=== PATIENT | female | born 1965 | race Caucasian/White ===

== ENCOUNTER 2017-07-10 07:57 | Day surgery (SDC) | payer BC ==
[~2017-07-10 07:57] MED LIST: Midazolam 1 MG/ML 2 ML SDV ONE; fentaNYL 100 MCG/2 ML SDV ONE
[2017-07-10] MEDS ORDERED: Midazolam 1 MG/ML 2 ML SDV IV ONE ×2 (07:58→08:34)
[2017-07-10] MEDS ORDERED: fentaNYL 100 MCG/2 ML SDV IV ONE ×2 (07:58→08:33)
[2017-07-10] MEDS ORDERED: Dextrose 5%-0.45% NaCl 1,000 ML IV SCH (08:15)
[2017-07-10 10:34] VITALS: BP 103/80
--- NOTE | 2017-07-10 13:53 | OR ---
DATE: 07/10/2017 PREOPERATIVE DIAGNOSIS: Screening colonoscopy. POSTOPERATIVE DIAGNOSIS: Screening colonoscopy. PROCEDURE: Total colonoscopy. ANESTHESIA: Conscious sedation with IV Versed and fentanyl. SPECIMEN: None. OPERATIVE FINDINGS: Normal colonoscopy. RECOMMENDATION: Followup screening colonoscopy in 10 years for polyps or as needed for symptoms. INDICATION FOR PROCEDURE: This 52-year-old female who has not had a prior colonoscopy. She presents for first-time screening. DESCRIPTION OF PROCEDURE: After adequate preparation, a colonoscope was inserted into the rectum. This was easily passed all the way to the cecum. Confirmation of the cecum was made by visualization of the appendiceal opening, the ileocecal valve on palpation in the right lower quadrant. A photograph of the appendix opening in the cecum was taken. The bowel prep was very good. On withdrawal of the scope, no abnormalities were noted. Anal and rectal examination were normal. There were no significant internal hemorrhoids. Air was suctioned from the colon, and the scope removed. [facility] /[id number]
== END 2017-07-10 11:00 | disposition home or self-care (01) ==
LOC: DL.ENDO 07:57
PROVIDERS: ATTEND Surgery
DX: Z12.11 Encounter for screening for malignant neoplasm of colon (principal); Z79.899 Other long term (current) drug therapy; Z90.49 Acquired absence of other specified parts of digestive tract
CPT/HCPCS: 45378; J2250; J3010; J7042